=== PATIENT | female | born 1990 | race African-American/Black ===

== ENCOUNTER 2024-12-22 01:00 | Inpatient (IN) | payer BC, SELFPAY ==
[2024-12-21 22:44] VITALS: BP 131/87; PULSE 90; TEMP 36.9
[2024-12-21 22:45] VITALS: PULSE 99; O2SAT 100
[2024-12-21 23:01] VITALS: BMI 24.5
[2024-12-21 23:25] LABS: Amnisure Rom* POSITIVE
--- NOTE | 2024-12-22 00:10 | P.OBHP_ITS ---
OB - H&P: HPI History of Present Illness Chief complaint: Maternity : 3 Para: 1 Narrative: Delayed documentation due to on going complex clinical care where I was required to be at bedside. First saw patient in triage at 2315 on 12/20/24. Meagan Sutton is a 34 year old female at 38.6 weeks based on 1st trimester ultrasound (05/24/24) putting BARRY on 12/30/24. Her family is with her (, daughter and mother). She is an unknown patient to us. She actually lives in [place] and gets care at [facility]. She was at [facility] picking up her mom and had a big gush of fluid (SROM) around 9pm. Their plan, originally, was to drive directly from [facility] to their [place] hospital. However, during the drive, her contractions became more frequent and intense. She was concerned for eminent delivery and stop at the nearest hospital, which is [place], to get evaluated. On arrival, she is appeared grossly ruptured. SVE: 90/0. NST: baseline of 150 bpm, moderate variability, multiple 15x15 qualifying acceleration, rare variable decelerations that spontaneously resolved. [place]: painful contractions Q1-3 minutes. Amnisure was positive. Records she received from [facility] confirm that Meagan is schedule for repeat with bilateral tubal ligation on 12/26/24 @39w3d. Federal consent for tubal ligation was signed on 10/16/24. Previous delivery was for breech presentation at term. I recommend urgent delivery as she's laboring and not wanting to TOLAC. Patient desires a delivery but not here. She requesting to be discharged. She wants to drive to her [facility] which is approximately 2 hours away. Discussed with Meagan that I recommend she stays for delivery given the long drive, the strength and frequency of her contractions, and that she has a scare uterus. If she leaves, she and fetus would be unmonitored. While, it is hard to say when she will be complete and eminently delivering vaginal, the risk of uterine rupture is present even in latent labor. We discussed the risks of trial of labor after section (TOLAC). There is a 0.5-0.9% chance of uterine rupture with one prior low transverse section. We discussed that in the event of uterine rupture, there could be catastrophic outcome including maternal hysterectomy, transfusion, infection, intensive care unit admission, maternal , , and me ntal handicap. There is up to a 25% risk of or neurological damage if rupture does occur. Patient was incredibly distraught and tearful as she does not know whether she wants to consent to delivery or leave AMA so she can have the delivery that she wants in a place that is familiar to her. Her concerns are: 1. Financial ramifications of delivering in a different state. She has [place] Medicaid coverage. She is adamant that she would not consent to any surgery that is not covered under her insurance. Reassured her that urgent/emergent deliveries would be covered. However, it is unclear whether her sterilization will be covered. Again, patient reiterated that she will not consent to care unless we can reassure her that 100% of it will be covered by her [place] Medicaid insurance. Advised patient to call her insurance for clarification. Unfortunately, no clarification can be provided by the number on the back of her insurance card as she was told that the people who could answer her question only work during weekdays. I discussed her case with the warehouse inventory clerk and On-call administration uniforms sales representative, Dr. Weathers. Dr. Weathers agreed that delivery would be covered due to the urgent nature of her care. However, it is unclear whether her salpingectomy would be covered. Patient is very upset by this and repeatedly said she would leave AMA. However, when asked to sign the AMA form or when she would have a particularly painful contraction, she would ask for delivery due to the pain. Then, when I go to consent her for delivery, she would decline again. She reports that this is not part of my plan and I want to delivery when I planned to. Patient does not feel safe to drive all the way to [place] so is requesting a gregory sfer to her medical center. She asked if this would be covered by insurance. Truthfully, it is unlikely to be covered by insurance as it would be considered a lateral transfer. Given her the frequency of her contraction and pain, I would not consider her safe for transfer. Again, she reiterated her financial concerns and doesn't feel comfortable making a decision without knowing the financial ramifications. I tried to reassure her that we would help her explore all options for financial assistance. Emphasized that my priority is offering the safest treatment for maternal and safety. This went on for 2 hours. Patient finally made a decision at 0100. She requesting delivery without salpingectomy. The patient was consented for section and blood. She is having a delivery for the indication of: Previous delivery, declined TOLAC. She understands that the four main categories of risk include pain, bleeding, infection, and damage to surrounding structures. Intraoperative pain will be manage with spinal anesthesia or epidural anesthesia. If that those are not effective or not appropriate for the clinical situation, general anesthesia will be administered. Immediately postop, TAP block will be performed. Throughout her recovery course, she will have on PO pain medications such as ibuprofen, Tylenol, and oxycodone. Regarding infection, she understands that we will be delivering appropriate antibiotics, however that the risk of infection following section still is approximately 5-7%. She understands that though the risk is very low that there is always a risk of damage to the bladder, uterus, ovaries, fallopian tubes, bowels, ureters, or even the fetus. She understands that most injuries can be addressed at the time of surgery, however, such an injury may require additional surgeries to fix. She understands that a section carries a risk of bleeding (1-5% risk of hemorrhage), and that while this bleeding can be addressed with multiple medical and surgical modalities (including hysterectomy), that there is the possibility of needing a blood transfusion (1-3%). She reports she would accept a blood transfusion if needed to preserve her life and her health. She understands that a section does increase risks for future pregnancies and deliveries including, but not limited to, the risk of uterine rupture or placenta accreta. This is especially pertinent now that she is declining sterilization procedure. Lastly, VTE after delivery rate is around 0.1-0.4%. Will decrease this risk with SCD use, early ambulation, and thromboprophylaxis medication if needed. We also reviewed postoperative care, recovery, and restrictions. All questions answered to patient's satisfaction and the best of my abilities. Consent form signed and will proceed with delivery via section. OR team notified. Patient's medical history is pertinent for: Childhood asthma that has resolved Scoliosis with Wright rods in her spine. She had spinal for her last delivery and an anesthesia consult this . She was told they would try a spinal again. Anesthesia will come to discuss this with her and consent her as well. Patient in OR at 0140 I was notified that there was difficulty placing the spinal and 5 attempts had been made to place the spinal. At 0230, decision was made by the INSURANCE RISK ANALYST to stop any additional attempts and discussion about general anesthesia was had. Patient adamantly refused to undergo general anesthesia even in the case of emergency. She requesting to leave AMA as she feels her OB care team in [place] will be able to place her spinal. She requested a cervical exam. SVE: copious amount of clear fluid noted at perineum. /0, soft, midposition We reviewed AMA paperwork in which is acknowledging that she is leaving against medical advise in a critical situation. I cannot assure maternal or safety without monitoring. Risk of leaving AMA in her situation includes delivery in an unsafe situation (i.e side of the road), uterine rupture, maternal/ hemorrhage, maternal and/or or permanent morbidity/handicap. Patient signed AMA, was brought out of the OR, left the hospital at 0250. We did contact [facility] L[facility]D to inform them of the situation and they are expecting her. [facility] Social History What is your current living situation?: I presently have a place to live Problems where you live: no known problems In the past 12 months, utilities in danger of being shut off: no In past 12 months, lack of transportation kept you from medical appts, meetings, work, or getting things needed for daily living: no In the past 12 mos, have been you worried that your food would run out before you had money to buy more?: never true In the past 12 mos, the food you bought just didn't last and you didn't have money to buy more?: never true Smoking Status: Never smoker How often does anyone, including family, friends and others, physically hurt you : never How often does anyone, including family, friends and others, insult or talk down to you: never How often does anyone, including family, friends and others, threaten you with harm: never How often does anyone, including family, friends and others, scream or curse at you: never Meds Home Medications and Allergies Home Medications ?Medication ?Instructions ?Recorded ?Confirmed ?Type docosahexaenoic acid 1 cap PO DAILY 12/21/2411/23 History Allergies Allergy/AdvReac Type Severity Reaction Status Date / Time No Known Drug Allergies Allergy Verified 12/22/24 00:27 OB - H&P: Exam Physical Exam: Vital signs: Temp Pulse BP Pulse Ox 98.5 F 90 131/87 100 12/21/24 22:44 12/21/24 22:44 12/21/24 22:44 12/21/24 22:45 Narrative: Physical exam: General: Very distressed. Grimacing through contractions. Psych: Alert and oriented x4, full affect HEENT: Normocephalic, atraumatic Heart: Regular rate and rhythm, no murmur rub or gallop Lungs: Clear to auscultation bilaterally Abdomen: Gravid, soft, no tenderness, rebound, or guarding. Moderate to Strong contractions palpated. Incision(s): Well healed. Lower extremities: No edema or erythema Pelvic exam: Copious amount of clear amniotic fluid on labia and perineum. SVE /0 on admission Assessment and Plan Assessment and plan (1) History of delivery affecting : Status: Acute (2) SROM (spontaneous rupture of membranes): Status: Acute (3) Spontaneous onset of labor: Status: Acute Plan - CS Consent The patient was consented for section and blood. She is having a delivery for the indication of: [] She understands that the four main categories of risk include pain, bleeding, infection, and damage to surrounding structures. Intraoperative pain will be manage with spinal anesthesia or epidural anesthesia. If that those are not effective or not appropriate for the clinical situation, general anesthesia will be administered. Immediately postop, TAP block will be performed. Throughout her recovery course, she will have on PO pain medications such as ibuprofen, Tylenol, and oxycodone. Regarding infection, she understands that we will be delivering appropriate antibiotics, however that the risk of infection following section still is approximately 5-7%. She understands that though the risk is very low that there is always a risk of damage to the bladder, uterus, ovaries, fallopian tubes, bowels, ureters, or even the fetus (0.1-0.3%). She understands that most injuries can be addressed at the time of surgery, however, such an injury may require additional surgeries to fix. She understands that a section carries a risk of bleeding (1-5% risk of hemorrhage), and that while this bleeding can be addressed with multiple medical and surgical modalities (including hysterectomy), that there is the possibility of needing a blood transfusion (0.5-3%). She reports she would accept a blood transfusion understanding the risks of a 1/300,000 risk of Hepatitis B, 1/1,500,000 risk of Hepatitis C, and 1/2,000,000 risk of HIV as well as the risk of having an allergic reaction to the blood products (1-3%). She further understands that this reaction is typically mild, however can be severe including respiratory distress and necessitating ICU-level care. She understands that a section does increase risks for future pregnancies and deliveries including, but not limited to, the risk of uterine rupture or placenta accreta. Lastly, VTE after delivery rate is around 0.1-0.4%. Will decrease this risk with SCD use, early ambulation, and thromboprophylaxis medication if needed. We also reviewed postoperative care, recovery, and restrictions. All questions answered to patient's satisfaction and the best of my abilities. Consent form signed and will proceed with delivery via section. Delayed documentation due to on going complex clinical care where I was required to be at bedside.
[2024-12-22] MEDS: LACTATED RINGERS 1000 ML 1,000 ML 1200 ML IV (01:04)
[2024-12-22 01:06] LABS: Basophils Absolute Auto 0.03 K/uL (0.00-0.30); Basophils Percent Auto 0.3 % (0.0-3.0); Eosinophils Absolute Auto 0.05 K/uL (0.00-0.50); Eosinophils Percent Auto 0.6 % (0.0-7.0); Hematocrit 37.7 % (33.0-51.0); Hemoglobin* 11.8 gm/dL (12.0-16.0); Immature Granulocytes Abs Auto 0.13 K/uL (0.00-0.30); Immature Granulocytes Pct Auto 1.5 %; Lymphocytes Absolute Auto 1.72 K/uL (0.90-2.90); Mean Corpuscular HGB Conc 31 gm/dL (32-36); Mean Corpuscular Hemoglobin 26 pg (26-34); Mean Corpuscular Volume 84 fL (80-100); Monocytes Percent Auto 8.4 % (0.0-11.0); Neutrophils Absolute Auto 5.95 K/uL (1.7-7.0); Neutrophils Percent Auto 69.2 % (42.0-72.0); Platelet Count* 200 K/uL (140-440); RDW Coefficient of Variation % 15.4 % (11.5-15.5); Red Blood Count 4.49 m/uL (4.00-5.20)
[2024-12-22 01:15] LABS: Slide Review Reflex No
[2024-12-22] MEDS: AZITHROMYCIN 500 MG in 0.9 % SODIUM CHLORIDE 250 ml 250 ML 255 MG IVPB (01:19)
[2024-12-22 01:27] VITALS: BP 128/85; PULSE 106
--- NOTE | 2024-12-22 02:38 | SUR.OPER ---
UNABLE TO COMPLETE SPINAL ANESTHESIA. PT. DECLINED TO HAVE GENERAL ANESTHESIA. PT. BATSHEVA CORTES.
--- NOTE | 2024-12-25 08:05 | PC.OBNST ---
NST Note NST Note Start: 12/21/24 22:40 Freq: ONCE Status: Active Protocol: Document 12/22/24 03:00 ALZ (Rec: 12/25/24 08:04 ALZ No Response) NST Note 3 Para (# of births) 1 EDC 12/30/24 Gestational Age In 39 Weeks & 2 Days Weeks & Days Patient Presented Contractions/cramping,Leaking fluid with Complaint(s) of Reactive No Appropriate for No Gestational Age MANINDER Vaughn Date 12/22/24 Reactive No Appropriate for No Gestational Age MANINDER Jose Date 12/22/24 OB NST charge Yes Complete NST Note Yes via Write Note The provider's electronic signature indicates the NST is reactive/appropriate for gestational age. *Note to provider: If an addendum is required, open the patient's chart and click on the note under the Nurse/Allied Health tab.
--- NOTE | 2024-12-25 13:31 | SUR.OPER ---
PATIENT LEFT A.M.A., UNABLE TO PLACE THE SPINAL ANESTHESIA, PT. DECLINED GENERAL ANESTHESIA AND LEFT.
--- NOTE | 2025-01-01 07:02 | P.ANES_ITS ---
Anesthesia Charges Start Date/Time Anesthesia Start Date: 12/20/24 Anesthesia Start Time: 01:39 Stop Date/Time Anesthesia Stop Date: 12/20/24 Anesthesia Stop Time: 02:37 Summary Emergency: ASSISTANT PLANT CONTROL OPERATOR Coding CPT Codes CPT Codes: ANESTH CS DELIVERY - 35918 ([id number]) P2 - PATIENT W/MILD SYST DISEASE, QZ - ASSISTANT PLANT CONTROL OPERATOR SVC W/O CERTIFIED SCRUB TECH BY Additional Codes: Summary - Emergency: ASSISTANT PLANT CONTROL OPERATOR ([id number])
--- NOTE | 2025-01-01 07:02 | W.ANESCHARGE ---
Anesthesia Charges Start Date/Time Anesthesia Start Date: 12/20/24 Anesthesia Start Time: 01:39 Stop Date/Time Anesthesia Stop Date: 12/20/24 Anesthesia Stop Time: 02:37 Summary Emergency: [employer] Coding CPT Codes CPT Codes: ANESTH CS DELIVERY - 12709 ([id number]) P2 - PATIENT W/MILD SYST DISEASE, QZ - [employer] SVC W/O HEAD OF ICT BY Additional Codes: Summary - Emergency: [employer] ([id number])
== END 2024-12-22 03:00 | disposition left against medical advice (07) | DRG 566 ==
LOC: OB OUT 01:44 → OB 01:44
PROVIDERS: Admitting Provider Obstetrics & Gynecology; Visit Provider Obstetrics & Gynecology
PROC: 0UJD7ZZ Inspection of Uterus and Cervix, Via Natural or Artificial Opening (ICD-10-PCS; CPT 59514; principal; 2024-12-22 01:45)
DX: O34.211 Maternal care for low transverse scar from previous cesarean delivery (principal); O42.02 Full-term premature rupture of membranes, onset of labor within 24 hours of rupture; Z53.29 Procedure and treatment not carried out because of patient's decision for other reasons; M41.9 Scoliosis, unspecified; Z96.698 Presence of other orthopedic joint implants; Z3A.38 38 weeks gestation of pregnancy
CPT/HCPCS: 01961; 01967; 36415; 59025; 76815; 84112; 85018; 85025; 86850; 86900; 86901; 99140; G0463; J0456; J1100; J1885; J2274; J2371; J2405; J2590; J7120